=== PATIENT | male | born 1935 | race Caucasian/White ===

== ENCOUNTER 2016-10-10 | Outpatient (CLI) | END 2016-10-10 14:52 | disposition critical access hospital (66) | CPT/HCPCS: A0425; A0427 ==

== ENCOUNTER 2016-10-10 15:06 | Inpatient (IN) | payer MEDICARE, OTHER ==
[2016-10-10] MEDS ORDERED: SODIUM CHLORIDE 0.9% 1,000 ML IV ONE ×2 (15:22→16:14)
[2016-10-10] MEDS ORDERED: PHYTONADIONE 10 MG/ML AMP IVP STA (15:46)
[2016-10-10] MEDS ORDERED: PHYTONADIONE 10 MG/ML AMP ONE (15:48)
[2016-10-10] MEDS ORDERED: FAMOTIDINE 20 MG/50 ML 50 ML IV ONE ×2 (16:14→16:50)
[2016-10-10] MEDS ORDERED: PANTOPRAZOLE 40 MG VIAL IVP STA (16:14)
[2016-10-10] MEDS ORDERED: SODIUM CHLORIDE 0.9% 2,000 ML IV ONE (16:50)
[2016-10-10] MEDS ORDERED: PANTOPRAZOLE 40 MG VIAL ONE (16:50)
[2016-10-10] MEDS ORDERED: SODIUM CHLORIDE FLUSH 0.9% 10 ML SYRINGE IVP PRN (19:23)
[2016-10-10] MEDS ORDERED: ACETAMINOPHEN 325 MG TABLET PO PRN (19:23)
[2016-10-10] MEDS ORDERED: POTASSIUM CHLORIDE 20 MEQ TABLET PO ONE (19:59)
[2016-10-10] MEDS ORDERED: POTASSIUM CHLORIDE 20 MEQ TABLET PO SCH (23:00)
[2016-10-10] MEDS: SODIUM CHLORIDE FLUSH 0.9% 10 ML SYRINGE IVP SCH (23:01)
[2016-10-10] MEDS: SUCRALFATE 1 GM/10 ML UDC PO SCH (23:55)
[2016-10-10] MEDS: MIRTAZAPINE 15 MG TABLET PO SCH (23:55)
[2016-10-11] MEDS: SODIUM CHLORIDE 0.9% 1,000 ML IV SCH ×4 (00:47→14:55)
[2016-10-11] MEDS: SODIUM CHLORIDE FLUSH 0.9% 10 ML SYRINGE IVP SCH ×3 (01:13→16:24)
[2016-10-11] MEDS: PANTOPRAZOLE 40 MG VIAL IVP SCH ×2 (06:21→16:24)
[2016-10-11] MEDS: SUCRALFATE 1 GM/10 ML UDC PO SCH ×4 (06:21→21:26)
[2016-10-11] MEDS: POTASSIUM CHLORIDE 20 MEQ TABLET PO SCH ×2 (13:47→21:17)
[2016-10-11] MEDS: POLYETHYLENE GLYCOL 3350 17 GM PACKET PO SCH (14:19)
[2016-10-11] MEDS ORDERED: LOPERAMIDE 2 MG CAPSULE PO PRN (14:30)
[2016-10-11] MEDS ORDERED: SENNA 8.6 MG TABLET PO PRN (14:34)
[2016-10-11] MEDS ORDERED: ALBUTEROL NEB 2.5 MG/3 ML INH PRN (14:35)
[2016-10-11] MEDS ORDERED: NITROGLYCERIN SL 0.4 MG TABLET SL PRN (14:35)
[2016-10-11] MEDS ORDERED: MIN OIL/DIMETHICON/COCONUT OIL 92 GM TUBE TOP ONE (20:37)
[2016-10-11] MEDS ORDERED: MIRTAZAPINE 15 MG TABLET PO SCH (21:00)
[2016-10-11] MEDS: METOPROLOL TARTRATE 25 MG TABLET PO SCH (21:17)
[2016-10-11] MEDS: MIRTAZAPINE 15 MG TABLET PO SCH (21:17)
[2016-10-12] MEDS: SODIUM CHLORIDE FLUSH 0.9% 10 ML SYRINGE IVP SCH ×2 (00:22→11:34)
[2016-10-12] MEDS: SUCRALFATE 1 GM/10 ML UDC PO SCH ×2 (06:19→11:33)
[2016-10-12] MEDS: PANTOPRAZOLE 40 MG VIAL IVP SCH (06:21)
[2016-10-12] MEDS ORDERED: ALLOPURINOL 100 MG TABLET PO SCH (09:00)
[2016-10-12] MEDS ORDERED: ASPIRIN EC 81 MG TABLET PO SCH (09:00)
[2016-10-12] MEDS: METOPROLOL TARTRATE 25 MG TABLET PO SCH (09:21)
[2016-10-12] MEDS: POTASSIUM CHLORIDE 20 MEQ TABLET PO SCH (09:21)
[2016-10-12] MEDS: POLYETHYLENE GLYCOL 3350 17 GM PACKET PO SCH (09:22)
== END 2016-10-12 15:30 | DRG 812 ==
DX: D50.0 Iron deficiency anemia secondary to blood loss (chronic) (principal); K92.2 Gastrointestinal hemorrhage, unspecified; I13.0 Hypertensive heart and chronic kidney disease with heart failure and stage 1 through stage 4 chronic kidney disease, or unspecified chronic kidney disease; N17.9 Acute kidney failure, unspecified; I11.0 Hypertensive heart disease with heart failure; I82.531 Chronic embolism and thrombosis of right popliteal vein; R07.9 Chest pain, unspecified; N28.9 Disorder of kidney and ureter, unspecified; D63.1 Anemia in chronic kidney disease; Z79.899 Other long term (current) drug therapy; N18.9 Chronic kidney disease, unspecified; I50.9 Heart failure, unspecified; I95.9 Hypotension, unspecified; I48.91 Unspecified atrial fibrillation; E87.6 Hypokalemia; I25.10 Atherosclerotic heart disease of native coronary artery without angina pectoris; M10.9 Gout, unspecified; Z95.1 Presence of aortocoronary bypass graft; I25.2 Old myocardial infarction; Z87.891 Personal history of nicotine dependence